=== PATIENT | female | born 1970 | race Caucasian/White ===

== ENCOUNTER → 2023-12-05 16:25 | Outpatient (REF) | payer BC, SELFPAY | LOC: HWWDC 16:25 | PROVIDERS: ATTENDING PHYSICIAN Advanced Practice Midwife; FAMILY PHYSICIAN Family Medicine | DX: Z12.31 Encounter for screening mammogram for malignant neoplasm of breast (principal) | CPT/HCPCS: 77063; 77067 ==

== ENCOUNTER → 2023-12-13 07:51 | Outpatient (REF) | payer BC, SELFPAY | LOC: HWRAD 07:51 | PROVIDERS: ATTENDING PHYSICIAN Family Medicine | DX: E34.9 Endocrine disorder, unspecified (principal); M25.522 Pain in left elbow | CPT/HCPCS: 73080; 76856 ==

== ENCOUNTER → 2024-06-02 09:07 | Outpatient (REF) | payer BC, SELFPAY | LOC: HWRAD 09:07 | PROVIDERS: ATTENDING PHYSICIAN Family Medicine | DX: M79.671 Pain in right foot (principal) | CPT/HCPCS: 73610; 73630 ==

== ENCOUNTER → 2024-06-26 14:12 | Outpatient (REF) | payer BC, SELFPAY | LOC: PAVMRI 14:12 | PROVIDERS: ATTENDING PHYSICIAN Podiatrist Foot & Ankle Surgery; FAMILY PHYSICIAN Family Medicine | DX: S93.01XD Subluxation of right ankle joint, subsequent encounter (principal); S93.611D Sprain of tarsal ligament of right foot, subsequent encounter | CPT/HCPCS: 73721 ==

== ENCOUNTER → 2025-02-19 07:01 | Outpatient (REF) | payer BC, SELFPAY | LOC: WDC 07:01 | PROVIDERS: ATTENDING PHYSICIAN Family Medicine | DX: Z12.31 Encounter for screening mammogram for malignant neoplasm of breast (principal) | CPT/HCPCS: 77063; 77067 ==